=== PATIENT | male | born 1990 ===

== ENCOUNTER 2024-07-20 18:48 | Outpatient (REF) | payer MEDICAID, SELFPAY ==
--- OUTSIDE RECORDS SUMMARY | 2024-07-20 19:27 | XMS_ITS | Encounter Summary ---
Author Organization [employer] Address [address] [address] Care Team Providers Care Certified Pharmacy Technician Name Role Phone Belkys Zamora [facility] Primary Care Provider [phone] Tereza Márquez Unavailable Unavailable Encounter Details Date Type Department Care Team ([facility] st Contact Info) Description 07/20/2024 2:40 PM EDT Office Visit [facility] [address] [place] [address] Michelle Ferrell MD [address] [place] [address] Genital sore (Primary Dx) Social History Tobacco Use Types Packs/Day Years Used Date Smoking Tobacco: Never Smokeless Tobacco: Never Alcohol Use Standard Drinks/Week Comments Not Currently 0 (1 standard drink = 0.6 oz pur e alcohol) Sex and Gender Information Value Date Recorded Sex Assigned at Male 11/26/2022 1:46 PM EDT Legal Sex Male 1:42 PM EDT Gender Identity Male 11/26/2022 1:46 PM EDT Sexual Orientation Straight 11/26/2022 1: 46 PM EDT documented as of this encounter Last Filed Vital Signs Vital Sign Reading Time Taken Comments Blood Pressure 127/72 07/20/2024 2:26 PM EDT Pulse 69 07/20/2024 2:26 PM EDT Temperature 36.6 ??C (97.8 ??F) 07/20/2024 2:26 PM ED T Respiratory Rate 16 07/20/2024 2:26 PM EDT Oxygen Saturation 99% 07/20/2024 2:26 PM EDT Inhaled Oxygen Concentration - - Weight 87.5 kg (193 lb) 07/20/2024 2:26 PM EDT Height 172.7 cm (5' 8 ) 07/20/2024 2:26 PM EDT Body Mass Index 29.35 07/20/2024 2:26 PM EDT documented in this encounter Progress Notes * Carolyn Lyons - 07/20/2024 2:40 PM EDT Subjective Patient ID: David Manrique is a 33 y.o. male who presents to walk in clinic for No chief complaint on file.. Pt reports about 5 days ago he noticed lesions on his genitals. He reports dysuria. Review of Systems Constitutional: Negative for fever and unexpected weight change. Respiratory: Negative for shortness of breath. Cardiovascular: Negative for chest pain. Gastrointestinal: Negative for abdominal pain. Genitourinary: Positive for dysuria and genital sores. Negative for difficulty urinating. Objective Visit Vitals BP 127/72 (BP Location: Left arm, Patient Position: Sitting, BP Cuff Size: Adult) Pulse 69 Temp 97.8 ??F (36.6 ??C) (Temporal) Resp 16 Body mass index is 29.35 kg/m??. Physical Exam Constitutional: Appearance: Normal appearance. Cardiovascular: Rate and Rhythm: Normal rate and regular rhythm. Heart sounds: Normal heart sounds. Pulmonary: Effort: Pulmonary effort is normal. Breath sounds: Normal breath sounds. Genitourinary: Penis: Uncircumcised. Lesions (vesicular, under foreskin on crwon of penis) present. Musculoskeletal: Cervical back: Normal range of motion. Skin: General: Skin is warm and dry. Neurological: Mental Status: Mental status is at baseline. Psychiatric: Behavior: Behavior normal. Problem List Items Addressed This Visit Genital sore - Primary 5 x days of vesicular lesions on penis under foreskin. Pain with urination. Already had STI testingdone. -Ordered HSV culture from lesions 07/20/24. -Accepted condoms. -Prescribed valACYclovir (Valtrex) 1 g, 1 tablet (1,000 mg) by mouth 2 times daily for 7 days. Relevant Medications valACYclovir (Valtrex) 1 g tablet Other Relevant Orders Herpes Simple Virus Culture -No evidence of acute disease process. Suspect possible STI versus Herpes. Symptoms mild. -Sent HSV culture. Will treat with antiviral empirically. -ER precautions discussed. -Seek medical attention for worsening symptoms. I, Carolyn Lyons, am serving as a scribe to document services personally performed by Dr. Fay, based on the patient's response to questions by provider and providers statements to me. documented in this encounter Miscellaneous Notes * Assessment & Plan Note - Carolyn Lyons - 07/20/2024 2:38 PM EDTAssociated Problem(s): Genital sore 5 x days of vesicular lesions on penis under foreskin. Pain with urination. Already had STI testingdone. -Ordered HSV culture from lesions 07/20/24. -Accepted condoms. -Prescribed valACYclovir (Valtrex) 1 g, 1 tablet (1,000 mg) by mouth 2 times daily for 7 days. documented in this encounter Plan of Treatment Scheduled Orders Name Type Priority Associated Diagnoses Orde r Schedule Herpes Simple Virus Culture Microbiology Routine Genital sore Expected: 07/20/2024 (Approximate), Expires: 07/20/2025 documented as of this encounter Visit Diagnoses Diagnosis Genital sore- Primary Other symptoms involving abdomen and pelvis documented in this encounter Care Teams Certified Pharmacy Technician Relationship Specialty Start Date End Date [place], [place], [facility] [address] [place] [address] PCP - General Family Medicine 11/26/22 Tereza Márquez Health Navigator 12/09/23 documented as of this encounter
--- OUTSIDE RECORDS SUMMARY | 2024-07-20 19:27 | XMS_ITS | Clinical Summary ---
Author Organization [employer] Address [address] [place] [address] Care Team Providers Care Odd Job Laborer Name Role Phone Belkys Zamora [facility] Primary Care Provider [phone] Tereza Márquez Unavailable Unavailable Allergies No known active allergies Medications valACYclovir (Valtrex) 1 g tabletIndication s:Genital sore Take 1 tablet (1,000 mg) by mouth 2 times daily for 7 days. 14 tablet 07/20/2024 5 Active Active Problems Problem Noted Date Diagnosed Date Genital sore 07/20/2024 Assessment & Plan (07/20/2024 2:38 PM EDT): 5 x days of vesicular lesions on penis under foreskin. Pain with urination. Already had STI testing done. -Ordered HSV culture from lesions 07/20/24. -Accepted condoms. -Prescribed valACYclovir (Valtrex) 1 g, 1 tablet (1,000 mg) by mouth 2 times daily for 7 days. Encounters Date Type Department Care Team Description 07/20/2024 2:40 PM EDT Office Visit [facility] [address] [place] [phone] Michelle Ferrell MD Genital sore (Primary Dx) from Last 3 Months Social History Tobacco Use Types Packs/Day Years Used Date Smoking Tobacco: Never Smokeless Tobacco: Never Tobacco Cessation:Counseling Given: Not Answered Alcohol Use Standard Drinks/Week Comments Not Currently 0 (1 standard drink = 0.6 oz pur e alcohol) Sex and Gender Information Value Date Recorded Sex Assigned at Male 11/26/2022 1:46 PM EDT Legal Sex Male 1:42 PM EDT Gender Identity Male 11/26/2022 1:46 PM EDT Sexual Orientation Straight 11/26/2022 1: 46 PM EDT Last Filed Vital Signs Vital Sign Reading [...] Mass Index 29.35 07/20/2024 2:26 PM EDT Plan of Treatment Health Maintenance Due Date Last Done Comments Depression Screening 1992 HIV Screening 1992 SDOH Screening 1992 Alcohol/Substance Use Screening 2004 Family Planning (PISQ) 11/14/2007 Hepatitis C Screening 2010 DTaP/Tdap/Td Vaccines (1 - Tdap) 11/14/2011 Hepatitis B Vaccines (1 of 3 - 19+ 3-dose series) 11/14/2011 Dental Oral Exam 11/15/2023 05/16/2023 Dental Prophylaxis 11/15/2023 05/16/2023 COVID-19 Vaccine (1 - 2023-2 5 season) 2023 Influenza Vaccine (#1) 2023 Dental X-Ray: Bitewings 05/17/2024 05/16/2023 Tobacco Screening 06/05/2024 06/05/2023 Dental X-Ray: Full Mouth 04/12/2026 04/11/2023 Zoster Vaccines (1 of 2) 2042 RSV Patients and Pa tients Aged 60 years or older (1 - 1-dose 75+ series) 11/14/2067 HIB Vaccines Aged Out No longer eligi ble based on patient's age to complete this topic HPV Vaccines Aged Out No longer eligi ble based on patient's age to complete this topic Hepatitis A Vaccines Aged Out No long er eligible based on patient's age to complete this topic IPV Vaccines Aged Out No longer eligi ble based on patient's age to complete this topic Meningococcal Vaccine Aged Out No daria justin eligible based on patient's age to complete this topic Pneumococcal Vaccine: Pediat rics (0 to 5 Years) and At-Risk Patients (6 to 49) Years) Aged Out No longer elig ible based on patient's age to complete this topic RSV under 20 months Aged Out No longe r eligible based on patient's age to complete this topic Rotavirus Vaccines Aged Out No longer eligible based on patient's age to complete this topic Procedures Procedure Name Priority Date/Time Associated Diagnosis Comments Full PROPHYLAXIS - ADULT Routine 024 1:00 PM EST BITEWINGS - 4 RADIOGRAPHIC IMAGES Routine 05/16/2023 1:00 PM EST COMPREHENSIVE ORAL EVALUATION - NEW OR ESTABLISHED PATIENT Routine 05/16/2023 1:00 PM EST PANORAMIC RADIOGRAPHIC IMAGE Routine 04/11/2023 1:00 PM EST Dental caries Supernumerary teeth from Last 3 Months or Most Recently Relevant to Health Maintenance [place] [address] [place] [address] [facility] Care Teams Odd Job Laborer Relationship Specialty [facility] Date [facility] [address] [place] [address] PCP - General Family Medicine 11/26/22 Tereza Márquez Health Navigator 12/09/23
== END 2024-07-20 18:49 | disposition home or self-care (01) ==
LOC: HO.HHCLNP 18:48
PROVIDERS: Visit Provider Family Medicine
DX: R39.89 Other symptoms and signs involving the genitourinary system (principal)
CPT/HCPCS: 87255